=== PATIENT | male | born 1975 | race Caucasian/White ===

== ENCOUNTER 2022-12-20 08:20 | Outpatient (CLI) | payer OTHER, SELFPAY ==
[2022-12-20 22:04] LABS: Basophils Absolute Auto 0.04 K/uL (0.00-0.30); Basophils Percent Auto 0.7 % (0.0-3.0); Eosinophils Percent Auto 3.7 % (0.0-7.0); Hematocrit 46.5 % (37.0-53.0); Hemoglobin* 15.2 gm/dL (13.5-17.5); Immature Granulocytes Abs Auto 0.02 K/uL (0.00-0.30); Immature Granulocytes Pct Auto 0.4 %; Lymphocytes Absolute Auto 2.15 K/uL (0.90-2.90); Lymphocytes Percent Auto 40.2 % (20-44); Mean Corpuscular HGB Conc 33 gm/dL (32-36); Mean Corpuscular Hemoglobin 27 pg (26-34); Mean Corpuscular Volume 84 fL (80-100); Monocytes Percent Auto 8.8 % (0.0-11.0); Neutrophils Absolute Auto 2.47 K/uL (1.7-7.0); Neutrophils Percent Auto 46.2 % (42.0-72.0); Platelet Count* 257 K/uL (140-440); RDW Coefficient of Variation % 12.3 % (11.5-15.5); Red Blood Count 5.56 m/uL (4.30-5.90); White Blood Count* 5.35 K/uL (4.50-11.00)
[2022-12-20 22:15] LABS: Albumin* 3.9 g/dL (3.3-5.0); Chloride* 105 mmol/L (96-114)
[2022-12-20 22:16] LABS: Potassium* 4.5 mmol/L (3.6-5.1); Slide Review Reflex No; Sodium* 137 mmol/L (135-149)
[2022-12-20 22:18] LABS: Aspartate Amino Transferase* 29 U/L (12-35); Bilirubin Total* 0.5 mg/dL (0.1-1.5); Blood Urea Nitrogen* 15 mg/dL (5-24); Carbon Dioxide* 25 mmol/L (20-32); Cholesterol* 152 mg/dL (90-199); Creatinine* 0.9 mg/dL (0.5-1.5); Estimated Glomerular Filt Rate 107 ml/min; Glucose* 111 mg/dL (60-115)
[2022-12-20 22:19] LABS: Alanine Aminotransferase* 43 U/L (4-50); Alkaline Phosphatase* 59 U/L (40-150); Calcium* 9.3 mg/dL (8.4-10.6); HDL Cholesterol* 55 mg/dL (>=40); LDL Cholesterol Calculated 67 mg/dL (<100); Triglycerides* 150 mg/dL (40-149)
[2022-12-20 22:30] LABS: NT Pro B Type NatriureticPept* 53 pg/mL
[2022-12-20 22:33] LABS: Free T4 Free Thyroxine* 1.04 ng/dL (0.70-1.85)
[2022-12-22 23:16] LABS: Testosterone, Adult Male 117 ng/dL (300-890); Total T3 136 ng/dL (80-200)
== END 2022-12-20 08:21 | disposition home or self-care (01) ==
PROVIDERS: Visit Provider Nurse Practitioner Family
DX: Z00.00 Encounter for general adult medical examination without abnormal findings (principal); R53.83 Other fatigue; R63.5 Abnormal weight gain; R35.1 Nocturia; Z13.228 Encounter for screening for other metabolic disorders; M79.89 Other specified soft tissue disorders; R06.00 Dyspnea, unspecified; N52.9 Male erectile dysfunction, unspecified; Z13.6 Encounter for screening for cardiovascular disorders
CPT/HCPCS: 36415; 80053; 80061; 83880; 84403; 84439; 84443; 84480; 85025; 87086

== ENCOUNTER 2023-02-22 09:25 | Outpatient (CLI) | payer OTHER, SELFPAY | END 2023-02-22 09:26 | disposition home or self-care (01) | PROVIDERS: PCP Nurse Practitioner Family; Visit Provider Nurse Practitioner Family | DX: E66.9 Obesity, unspecified (principal); I10 Essential (primary) hypertension; Z51.81 Encounter for therapeutic drug level monitoring | CPT/HCPCS: 80048 ==

== ENCOUNTER 2024-04-24 09:22 | Outpatient (CLI) | payer OTHER, SELFPAY ==
--- OUTSIDE RECORDS SUMMARY | 2024-04-24 09:28 | XMS_ITS ---
Author Organization [facility] Address [address] [place] [address] Care Team Providers Care Almond Grinder Name Role Phone Unavailable Unavailable Unavailable Surgery Details Not on file Complications Check Surgery Details section. Procedure Estimated Blood Loss Check Surgery Details section. Procedure Findings Check Surgery Details section. Procedure Specimens Taken Check Surgery Details section.
--- OUTSIDE RECORDS SUMMARY | 2024-04-24 09:28 | XMS_ITS | Referral Summary ---
Author Organization [facility] Address [address] [place] [address] Care Team Providers Care Unemployment Claims Adjudicator Name Role Phone Ronald AscencioC. Primary Care Provider Source Comments Patient records contain information from all sites at [facility]. For routine questions regarding patient records, call [phone] during business hours, M-F 8:00 AM - 5:00 PM Central Time. Record requests for emergency care only can be directed to [phone] at any time.[facility] Encounters Date Type Department Care Team Description 02/18/2024 Orders Only [facility] SELF TEST [facility] [address] [place] [id number] Ronald Ascencio, P.A.-C. Screening Cancer Colon 02/04/2024 Orders Only [facility] SELF TEST [facility] [address] [place] [id number] Ronald Ascencio, P.A.-C. Screening Cancer Colon 01/28/2024 Orders Only [facility] SEMN PCP [facility] Ronald Ascencio, P.A.-C. Screening Examination Diabetes Mellitus from Last 3 Months Allergies No known active allergies Medications Medication Sig Dispensed Refills Start Date End Date Status ibuprofen (ADVIL,MOTRIN) 200 mg tablet Take 400 mg by mouth every 6 (six) hours. Active chlorthalidone (HYGROTON) 25 mg tablet Take 25 mg by mouth daily. 12/20/2022 Active Ozempic 0.25 mg or 0.5 mg (2 mg/3 mL) injection Inject 0.25 mg under the skin every 7 (seven) days. 02/23/2023 Active dexAMETHasone (DECADRON) 1 mg tablet Take 1 tablet when directed 2 tablet 03/25/2023 Active Active Problems Problem Noted Date Diagnosed Date Morbid Obesity Body Mass Index 40.0-44.9 Adult 0 05/12/2018 Melanoma Upper Arm Left 11/04/2014 Overview (01/15/2017): Melanoma Upper Arm L Immunizations Name Administration Dates Next Due MMR 04/12/1993 Td (Adult), adsorbed 05/01/2006 Tdap 04/07/2017,10/29/2011,05/01/2006 influenza vaccine quad (FLUZ ONE/FLUARIX) (6 months and older)(PF) 06/16/2018 Social History Tobacco Use Types Packs/Day Years Used Date Smoking Tobacco: Former Cigarettes Q uit: 08/03/2007 Smokeless Tobacco: Never Tobacco Cessation:Counseling Given: Not Answered Alcohol Use Standard Drinks/Week Comments Yes 2 (1 standard drink = 0.6 oz pur e alcohol) Humiliation, Afraid, Rape, and Kick questionnair e Answer Date Recorded Within the last year, have y ou been afraid of your partner or ex-partner? No 01/30/2021 Within the last year, have y ou been humiliated or emotionally abused in other ways by your partner or ex-partner? No Within the last year, have y ou been kicked, hit, slapped, or otherwise physically hurt by your partner or ex-partner? No 01/30/2021 Within the last year, have y ou been raped or forced to have any kind of sexual activity by your partner or ex-partner? No 01/30/2021 Social Connection and Isolat ion Panel [NHANES] Answer Date Recorded In a typical week, how many times do you talk on the phone with family, friends, or neighbors? Twice a week 01/30/2021 How often do you get togethe r with friends or relatives? Once a week 01/30/2021 How often do you attend [facility] or presybeterian services? More than 4 times per year 01/30/2021 Do you belong to any clubs o r organizations such as lutheran groups, unions, fraternal or athletic groups, or school groups? Yes 01/30/2021 How often do you attend meet ings of the clubs or organizations you belong to? More than 4 times per year 01/30/2021 Are you , , di vorced, , never , or living with a partner? 01/30/2021 AUDIT-C Answer Date Recorded Q1: How often do you have a drink containing alc ohol? 2-3 times a week 01/30/2021 Q2: How many drinks containi ng alcohol do you have on a typical day when you are drinking? 1 or 2 01/30/2021 Q3: How often do you have si x or more drinks on one occasion? Less than monthly 01/30/2021 Overall Financial Resource Strain (CARDIA) Answe r Date Recorded How hard is it for you to pa y for the very basics like food, housing, medical care, and heating? Not hard at all 01/30/2021 PHQ-2 Answer Date Recorded PHQ-2 Score 0 01/30/2021 [facility] - Occupational Stress Questionnaire Answer Date Recorded Do you feel stress - tense, restless, nervous, or anxious, or unable to sleep at night because your mind is troubled all the time - these days? Not at all 01/30/2021 Exercise Vital Sign Answer Date Recorde d On average, how many days pe r week do you engage in moderate to strenuous exercise (like a brisk walk)? 5 days Minutes of Exercise per Session Not on file 01/30/2021 Hunger Vital Sign Answer Date Recorded Within the past 12 months, y ou worried that your food would run out before you got the money to buy more. Never true 01/31/20 21 Within the past 12 months, t he food you bought just didn't last and you didn't have money to get more. Never true 01/30/2021 PRAPARE - Transportation Answer Date Re corded In the past 12 months, has l ack of transportation kept you from medical appointments or from getting medications? No 02/2021 In the past 12 months, has l ack of transportation kept you from meetings, work, or from getting things needed for daily living? No 01/30/2021 Housing Stability Vital Sign Answer Stanislav e Recorded In the last 12 months, was t here a time when you were not able to pay the mortgage or rent on time? No 01/30/2021 In the last 12 months, how many places have you lived? 1 01/30/2021 In the last 12 months, was t here a time when you did not have a steady place to sleep or slept in a long term (including now)? No 01/30/2021 Nutrition Answer Date Recorded Nutrition: EVOO Fat Source No 01/30 On average, how many serving s of fruits and vegetables do you eat per day (serving size is equal to 1 cup or approximately the size of a tennis ball)? 2-3 01/30/2021 Dental Answer Date Recorded Dental: Regular Dentist Unknown 02/02/20 Employment Answer Date Recorded Employment status Employed and actively working without restrictions 01/30/2021 Education Answer Date Recorded What is the highest level of school you have completed or the highest degree you have received? Professional school degree (e.g., MD, DDS, DVM, WATSON) 03/20/2019 Sex and Gender Information Value Date Recorded Sex Assigned at Male 03/19/2023 7:46 AM CDT Gender Identity Male 05/26/2018 8:36 AM CDT Sexual Orientation Straight 05/26/2018 8: 36 AM CDT Last Filed Vital Signs Vital Sign Reading Time Taken Comments Blood Pressure 132/92 03/25/2023 12:14 PM CDT Pulse 77 03/25/2023 12:14 PM CDT Temperature 36.3 ??C (97.3 ??F) 02/14/2021 9:54 AM CD T Respiratory Rate 16 02/14/2021 9:54 AM CDT Oxygen Saturation 96% 08/28/2018 8:53 AM DEVELOPMENT PLANNER Inhaled Oxygen Concentration - - Weight 170 kg (373 lb 10.9 oz) 03/25/2023 12:14 PM CDT Height 185.3 cm (6' 0.95) 03/25/2023 12:14 PM C DT Body Mass Index 49.36 03/25/2023 12:14 PM CDT Plan of Treatment Not on file Procedures Procedure Name Priority Date/Time Associated Diagnosis Comments HEMOGLOBIN A1C, B Routine 06/05/2018 8:4 0 AM CDT Endocrine Disorder Screening Exam LIPID PANEL, S Routine 06/05/2018 8:40 AM CDT Screening Examination Diabetes Mellitus Encounter For Screening For Cardiovascular Disorders Screening Examination For Thyroid Disorder Morbid Obesity Body Mass Index 40.0-44.9 Adult (HCC) from Last 3 Months or Most Recently Relevant to Health Maintenance Results * Lipid Panel (06/05/2018 8:40 AM CDT) Cholesterol, Total 159 mg/dL 2017 1:43 PM CDT [facility] Comment: ----REFERENCE VALUE---- Desirable: < 200 Borderline high: 200 - 239 High: > or = 240 Triglycerides 114 mg/dL 06/05/2018 1:43 PM CDT [facility] Comment: ----REFERENCE VALUE---- Normal: <150 Borderline high: 150-199 High: 200-499 Very high: > or =500 Cholesterol, HDL, S 56 >=40 mg/dL 06/05/2018 1:43 PM CDT [facility] Calculated LDL 80 mg/dL 06/05/2018 1:43 PM CDT [facility] Comment: ----REFERENCE VALUE---- Desirable: <100 Above Desirable: 100-129 Borderline high: 130-159 High: 160-189 Very high: > or =190 Cholesterol, Non-HDL, Calculated 103 mg/dL 06/05/2018 1:43 PM CDT [facility] Comment: ----REFERENCE VALUE---- Desirable: <130 Above Desirable: 130-159 Borderline high: 160-189 High: 190-219 Very high: > or =220 Blood (Blood, Venous) 06/05/2018 8:40 AM CDT 06/05/2018 12:56 PM CDT Ronald Ascencio P.A.-C. LAB BLOOD ADD- ON [facility] [address] [place] [address], [facility] * Hemoglobin A1c (06/05/2018 8:40 AM CDT) Hemoglobin A1c, B 5.3 4.2 - 5.6 % 06/05/2018 1:33 PM CDT [facility] Blood 06/05/2018 8:40 AM CDT 06/05/2018 12:56 PM CDT Ronald Ascencio P.A.-C. LAB BLOOD ADD- ON [facility] [address] [place] [address], [facility] from Last 3 Months or Most Recently Relevant to Health Maintenance Care Teams Unemployment Claims Adjudicator Relationship Specialty Start Date End Date Ronald Ascencio P.A.-C. PCP - General Family Medicine 05/09/18
--- OUTSIDE RECORDS SUMMARY | 2024-04-24 09:28 | XMS_ITS | Encounter Summary ---
Author Organization [facility] Address [address] [place] [address] Care Team Providers Care Residential Assistant Name Role Phone Ronald Ascencio P.ATonya-CTonya Primary Care Provider Encounter Details Date Type Department Care Team (Late st Contact Info) Description 01/28/2024 Orders Only [facility] SEM[facility] PCP [facility] MNT Ronald Ascencio, P.A.-C. [address] [facility] [place] [id number] Screening Examination Diabetes Mellitus Social History Tobacco Use Types Packs/Day Years Used Date Smoking Tobacco: Former Cigarettes Q uit: 08/03/2007 Smokeless Tobacco: Never Alcohol Use Standard Drinks/Week Comments Yes 2 [...] week 01/30/2021 How often do you attend chur ch or confucianism services? More than 4 times per year 01/30/2021 Do you belong to any clubs o r organizations such as faith groups, unions, fraternal or athletic groups, or [...] Answer Date Recorded PHQ-2 Score 0 01/30/2021 [facility] - Occupational Stress Questionnaire Answer Date Recorded [...] place to sleep or slept in a mcc (including now)? No 01/30/2021 Nutrition Answer Date Recorded Nutrition: EVOO Fat Source No 01/30 On average, how many serving s of fruits and vegetables do you eat per day (serving size is equal to 1 cup or approximately the size of a tennis ball)? 2-3 01/30/2021 Dental Answer Date Recorded Dental: Regular Dentist Yes 08/26/19 Employment Answer Date Recorded Employment status Employed [...] Orientation Straight 05/26/2018 8: 36 AM CDT documented as of this encounter Plan of Treatment Scheduled Orders Name Type Priority Associated Diagnoses Orde r Schedule Glucose, Fasting Lab Routine Screening Examination Diabetes Mellitus Expected: 02/11/2024, Expires: 07/26/2024 documented as of this encounter Visit Diagnoses Diagnosis Screening Examination Diabetes Mellitus documented in this encounter Additional Health Concerns Assessment Noted Time PHQ-9 Depression Total Score: 3 11/05/19 15 8:27 AM CDT documented as of this encounter Care Teams Residential Assistant Relationship Specialty Start Date End Date Ronald Ascencio P.A.-C. PCP - General Family Medicine 05/09/18 documented as of this encounter
--- OUTSIDE RECORDS SUMMARY | 2024-04-24 09:28 | XMS_ITS | Encounter Summary ---
Author Organization [facility] Address [address] [place] [address] Care Team Providers Care Manager Wholesale Name Role Phone Ronald Ascencio-Amador Primary Care Provider Encounter Details Date Type Department Care Team (Late st Contact Info) Description 02/18/2024 Orders Only [facility] SELF TEST [facility] [address] [place] [id number] Ronald Ascencio P.ATonya-CTonya [address] [place] [address] [place] [phone] Screening Cancer Colon Social History Tobacco Use Types Packs/Day Years [...] often do you attend chur ch or caodaism services? More than 4 times per year 01/30/2021 Do you belong to any clubs o r organizations such as spiritism groups, unions, fraternal or athletic groups, or [...] Answer Date Recorded PHQ-2 Score 0 01/30/2021 [facility] - Occupational Stress Questionnaire Answer Date Recorded [...] place to sleep or slept in a skilled nursing (including now)? No 01/30/2021 Nutrition Answer Date [...] as of this encounter Plan of Treatment Not on file documented as of this encounter Visit Diagnoses Diagnosis Screening Cancer Colon documented in this encounter Additional Health Concerns Assessment Noted Time PHQ-9 Depression Total Score: 3 11/05/19 15 8:27 AM CDT documented as of this encounter Care Teams Manager Wholesale Relationship Specialty Start Date End Date Ronald Ascencio P.A.-C. PCP - General Family Medicine 05/09/18 documented as of this encounter
--- OUTSIDE RECORDS SUMMARY | 2024-04-24 09:28 | XMS_ITS | Encounter Summary ---
Author Organization [facility] Address [address] [place] [address] Care Team Providers Care Window And Door Installer Name Role Phone Ronald Ascencio-Amador Primary Care Provider Encounter Details Date Type Department Care Team (Late st Contact Info) Description 02/04/2024 Orders Only [facility] SELF TEST [facility] [address] [place] [phone] Ronald Ascnecio P.ATonya-CTonya [address] [place] [address] [place] [phone] Screening Cancer Colon Social [...] often do you attend chur ch or mosque services? More than 4 times per year 01/30/2021 Do you belong to any clubs o r organizations such as advent groups, unions, fraternal or athletic groups, or [...] Answer Date Recorded PHQ-2 Score 0 01/30/2021 [facility] - Occupational Stress Questionnaire Answer Date Recorded [...] place to sleep or slept in a penitentiary (including now)? No 01/30/2021 Nutrition Answer Date [...] Type Priority Associated Diagnoses Orde r Schedule Cologuard - Sent Out Lab Lab Routine Screening Cancer Colon Expected: 02/18/2024, Expires: 05/06/2025 documented as of this encounter Visit Diagnoses Diagnosis Screening Cancer Colon documented in this encounter Additional Health Concerns Assessment Noted Time PHQ-9 Depression Total Score: 3 11/05/19 15 8:27 AM CDT documented as of this encounter Care Teams Window And Door Installer Relationship Specialty Start Date End Date RoethRonald stiles P.A.-C. PCP - General Family Medicine 05/09/18 documented as of this encounter
--- OUTSIDE RECORDS SUMMARY | 2024-04-24 09:28 | XMS_ITS | Clinical Summary ---
Author Organization [facility] Address [address] [place] [address] Care Team Providers Care Milk Tester Name Role Phone Ronald AscencioATonya-C. Primary Care Provider Source Comments Patient records contain information from all sites at [facility]. For routine questions regarding patient records, call [phone] during business hours, M-F 8:00 AM - 5:00 PM Central Time. Record requests for emergency care only can be directed to [phone] at any time.[facility] Allergies No known active allergies Medications Medication [...] 11/04/2014 Overview (01/15/2017): Melanoma Upper Arm L Encounters Date Type Department Care Team Description 02/18/2024 Orders Only [facility] SELF TEST [facility] [address] [place] [phone] Ronald Ascencio P.A.-CTonya Screening Cancer Colon 02/04/2024 Orders Only [facility] SELF TEST [facility] [address] [place] [id number] Ronald Ascencio, PTonyaATonya-C. Screening Cancer Colon 01/28/2024 Orders Only [facility] SEMN PCP HLTH MNT Ronald Ascencio P.A.-C. Screening Examination Diabetes Mellitus from Last 3 Months Immunizations Name Administration Dates Next Due MMR 04/12/1993 Td (Adult), adsorbed 05/01/2006 Tdap 04/07/2017,10/29/2011,05/01/2006 influenza vaccine quad (FLUZ ONE/FLUARIX) (6 months and older)(PF) 06/16/2018 Family History Medical History Relation Name Comments Obesity Brother Parviz Cook Obesity Father Aguilar Cook Skin cancer Father Aguilar Cook Face-recent 2 020 Aneurysm Grandfather Dementia Grandmother Hypertension Grandmother Coronary artery disease Mother Oliva Cook d enlarged heart Heart failure Mother Oliva Cook Migraines Mother Oliva Cook Obesity Mother Oliva Cook Relation Name Status Comments Brother Parviz Cook Father Aguilar Cook Grandfather Grandmother Mother Oliva Cook Social History Tobacco Use Types Packs/Day Years [...] 01/30/2021 How often do you attend chur or pentecostal services? More than 4 times per year 01/30/2021 Do you belong to any clubs o r organizations such as jehovah's witness groups, unions, fraternal or athletic groups, or [...] Answer Date Recorded PHQ-2 Score 0 01/30/2021 [facility] - Occupational Stress [...] place to sleep or slept in a care home (including now)? No 01/30/2021 Nutrition Answer Date [...] CDT Oxygen Saturation 96% 08/28/2018 8:53 AM JOB CHANGE CREW MEMBER Inhaled Oxygen Concentration - - Weight 170 kg (373 lb 10.9 oz) 03/25/2023 12:14 PM CDT Height 185.3 cm (6' 0.95) 03/25/2023 12:14 PM C DT Body Mass Index 49.36 03/25/2023 12:14 PM CDT Plan of Treatment Health Maintenance Due Date Last Done Comments CT Colonography 1976 Cologuard 1976 Colonoscopy 1976 Colorectal Cancer Screening 1976 FIT 1976 HIV Screening 1976 Hepatitis C Screening 1976 Hepatitis B Vaccines (1 of 3 - 19+ 3-dose series) 1995 Fasting Glucose for Diabetes Screening 06/05/2021 06/05/2018, 06/05/2018, 10/28/2014, Additional history exists COVID-19 Vaccine ( season) 2023 08/24/2022, 08/12/2021, 11/25/2020 Lipid (Cholesterol) Screening 06/05/2023 06/05/2018, 10/28/2014, 10/29/2011 Office Visit for Blood Pressure Check / Re-check 06/25/2023 03/25/2023 Depression Screening (Annual PHQ-2) 08/26/2023 Influenza Vaccine (#1) 2024 08/24/2022, 2017 DTaP,Tdap,and Td Vaccines (4 - Td or Tdap) 04/07/2027 04/07/2017, 10/29/2011, 05/01/2006, Additional history exists Pneumococcal vaccine (0-64 years) Aged Out No longer eligible based on patient's age to complete this topic Procedures Procedure Name Priority Date/Time Associated Diagnosis [...] 8:40 AM CDT) Cholesterol, Total 159 mg/dL 10/11/ 2018 1:43 PM CDT [facility] Comment: ----REFERENCE VALUE---- Desirable: < 200 Borderline high: 200 - 239 High: > or = 240 Triglycerides 114 mg/dL 06/05/2018 1:43 PM CDT [facility] Comment: ----REFERENCE VALUE---- Normal: <150 Borderline high: 150-199 High: 200-499 Very high: > or =500 Cholesterol, HDL, S 56 >=40 mg/dL 06/05/2018 1:43 PM CDT [facility] Calculated LDL 80 mg/dL 06/05/2018 1:43 PM CDT [facility] Comment: ----REFERENCE VALUE---- Desirable: <100 Above Desirable: 100-129 Borderline high: 130-159 High: 160-189 Very high: > or =190 Cholesterol, Non-HDL, Calculated 103 mg/dL 06/05/2018 1:43 PM CDT [facility] Comment: ----REFERENCE VALUE---- Desirable: <130 Above Desirable: 130-159 Borderline high: 160-189 High: 190-219 Very high: > or =220 Blood (Blood, Venous) 06/05/2018 8:40 AM CDT 06/05/2018 12:56 PM CDT Ronald Ascencio P.A.-C. LAB BLOOD ADD- ON [facility] [address] [place] [id number] * Hemoglobin A1c (06/05/2018 8:40 AM CDT) Hemoglobin A1c, B 5.3 4.2 - 5.6 % 06/05/2018 1:33 PM CDT [facility] Blood 06/05/2018 8:40 AM CDT 06/05/2018 12:56 PM CDT Ronald Ascencio P.A.-C. LAB BLOOD ADD- ON [facility] [address] [facility] [place] [address], [facility] from Last 3 Months or Most Recently Relevant to Health Maintenance Care Teams Milk Tester Relationship Specialty Start Date End Date Ronald Ascencio P.A.-C. PCP - General Family Medicine 05/09/18
== END 2024-04-24 09:23 | disposition home or self-care (01) ==
PROVIDERS: PCP Nurse Practitioner Family; Visit Provider Nurse Practitioner Family
DX: Z00.00 Encounter for general adult medical examination without abnormal findings (principal); I10 Essential (primary) hypertension; E66.9 Obesity, unspecified; R53.83 Other fatigue; R79.89 Other specified abnormal findings of blood chemistry; Z13.6 Encounter for screening for cardiovascular disorders
CPT/HCPCS: 80053; 80061; 84403; 84443